=== PATIENT | male | born 1955 | race Caucasian/White ===

== ENCOUNTER 2019-01-11 11:59 | Outpatient (REF) | payer OTHER, SELFPAY | END 2019-01-11 12:19 | LOC: LBN 11:59 | PROVIDERS: PCP Internal Medicine; Visit Provider Urology | DX: R31.9 Hematuria, unspecified (principal) | CPT/HCPCS: 87077; 87086; 87186 ==

== ENCOUNTER 2019-01-17 09:46 | Inpatient (IN) | payer OTHER, SELFPAY ==
[2019-01-17] VITALS (17 sets, daily range): BP systolic 116–154; BP diastolic 66–92; PULSE 61–70; RESP 10–20; TEMP 35.9–36.6; O2SAT 93–98
--- NOTE | 2019-01-17 09:51 | HPE_ITS ---
Assessment and Plan (1) Urinary retention: Current visit: Yes Status: Acute He has failed maximal medical therapy. He presents for cystoscopy with TURP/Vaporization of prostate. His urine sample from last week grew Enterococcus and he has been on Ampicillin as an outpatient. He understands that his surgical pathology could show prostate cancer and that the TURP is not considered a treatment for prostate cancer. Chief Complaint: Urinary retention This is a 63 year old man who was referred to our practice by [facility] after the patient developed acute urinary retention. Mr Ibrahim has had gradual development of lower urinary tract symptoms including hesitancy and slowing of his urinary stream. He had been treated with alpha blockers (Flomax 0.4 mg daily) over the years, but his symptoms progressed. When he developed urinary retention, a soto catheter was placed and his dose of Flomax was doubled. He was treated with antibiotics for presumed acute prostatitis. He was also started on a 5 alpha reductase inhibitor (Finasteride). He has failed several voiding trials and has been unable to accomplish CIC, so his catheter was replaced. He had a urodynamic study which confirms contractility of his bladder. He has a history of an elevated PSA. He has not been diagnosed with prostate cancer. He did not want to delay his surgical treatment for retention by having a prostate biopsy first. Review of Systems Review of Systems No fevers or chills No dysphasia. Wears glasses No diabetes or thyroid dysfunction No shortness of breath, cough or hemoptysis No chest pain or palpitations No nausea, vomiting, hepatitis, ulcers, jaundice, or constipation. Recent diarrhea likely related to antibiotics No seizures or peripheral neuropathy. Residual weakness right arm and right leg s/p stroke. No bleeding disorders or anemia No gout PFSH Medical History Urinary retention (Acute) Carotid artery stenosis (Chronic) GERD (gastroesophageal reflux disease) (Chronic) Hyperlipidemia (Chronic) Hypertension (Chronic) Stroke (Chronic) Surgical History H/O carotid endarterectomy (Chronic) Hx of tonsillectomy (Chronic) Social History Smoking and Tabacco status: Former Tobacco Use Meds Home Medications Medication Instructions Recorded Confirmed Type aspirin 81 mg tablet,delayed 81 mg PO DAILY 12/14/18 01/17/19 History release atorvastatin 80 mg tablet 80 mg PO HS 12/14/18 01/17/19 History ciprofloxacin 500 mg tablet 500 mg PO BID #20 tab 12/14/18 01/17/19 Rx finasteride 5 mg tablet 5 mg PO HS 12/14/18 01/17/19 History hydrochlorothiazide 12.5 mg tablet 12.5 mg PO DAILY 12/14/18 01/17/19 History loratadine 10 mg tablet 10 mg PO DAILY PRN 12/14/18 01/17/19 History losartan 50 mg tablet 50 mg PO HS 12/14/18 01/17/19 History meclizine 25 mg tablet 25 mg PO TID PRN 12/14/18 01/17/19 History metoprolol succinate ER 100 mg 100 mg PO DAILY 12/14/18 01/17/19 History tablet,extended release 24 hr omeprazole 20 mg capsule,delayed 20 mg PO DAILY 12/14/18 01/17/19 History release ranitidine 150 mg capsule 150 mg PO DAILY 12/14/18 01/17/19 History sildenafil 100 mg tablet 100 mg PO ONCE 12/14/18 01/17/19 History tamsulosin 0.4 mg capsule 0.8 mg PO DAILY #180 cap 12/23/18 01/17/19 Rx ampicillin 500 mg capsule 500 mg PO QID #20 cap 01/13/19 01/17/19 Rx acetaminophen 1,000 mg PO Q6H PRN 01/14/19 01/17/19 History Allergies Allergy/AdvReac Type Severity Reaction Status Date / Time No Known Allergies Allergy Verified 01/17/19 10:03 Exam Const General: cooperative and no acute distress Neck Neck: supple Chest Chest: normal inspection of the chest Resp Effort & Inspection: normal respiratory effort Auscultation: clear to auscultation bilaterally Cardio Rate: regular rate Rhythm: regular rhythm GI Palpation: soft and no masses Other: soto in place draining clear urine Neuro General: alert, awake and oriented x3 Extrem General: no edema
[2019-01-17] MEDS: Lactated Ringers 1,000 ML 80 ML IV ×2 (10:40→13:44)
[2019-01-17] MEDS: Lidocaine 2% Jelly 11 ML SYR (11:23)
--- NOTE | 2019-01-17 12:40 | PROST_PTH ---
PATIENT: Hayden Ibrahim LOC: U#:[id number] AGE/SX: 63/M ROOM: 216 RE01/17/[address]: Bry Melgoza MD : [id number] BED: A DIS: 01/18/2019 SPEC #: [id number] RECD: 01/17/19 17:59 STATUS: SOUJorge REQ #: [id number] AMARIS: 01/17/19 12:[address]: Bry Melgoza DEPT: Surgical Specimen RECD BY: Maria G Miramontes ENTERED: 01/17/19 17:59 SP TYPE: PROST OTHR DR: Shane Theodore Tissues: 1 - PROSTATE CURRETTINGS Procedures: GROSS AND MICRO LEVEL 4 Comments: [id number]
[2019-01-17] MEDS: fentaNYL 100 MCG/2 ML VIAL IVP ×2 (13:30→14:08)
--- NOTE | 2019-01-17 14:19 | ROE_ITS ---
DATE OF PROCEDURE: January 17, 2019 PREOPERATIVE DIAGNOSIS: Urinary retention. POSTOPERATIVE DIAGNOSIS: Same. PROCEDURE: Cystoscopy; transurethral resection of prostate. SURGEON: Bry Melgoza M.D. ANESTHESIA: General. COMPLICATIONS: None. ESTIMATED BLOOD LOSS: 200 cc's. HISTORY: This is a 63-year-old gentleman who has had progressive lower urinary tract symptoms over years. He developed urinary retention requiring a Barnes catheter. His medical treatment was maximized with alpha blockers and 5-alpha reductase inhibitors, but he was still unable to void. He presents now for a transurethral resection of his prostate. He did have a pre-procedure urodynamics that showed an adequate detrusor contraction. OPERATIVE REPORT: The patient was brought to the Operating Room on 01/17/19. After successful induction of general anesthesia, he was placed in the dorsal lithotomy position. His genitalia was prepped and draped after his indwelling catheter was removed. A 24 Vietnamese resectoscope sheath was passed through the urethra into the bladder. We used a visual obturator to inspect both the urethra and the bladder. The pendulous, bulbous and membranous urethras appeared normal with no strictures. There was some increased erythema, as would be expected from his indwelling catheter. His prostatic urethra showed trilobar enlargement with a rather large median lobe jutting back into the bladder. Both ureteral orifices were identified. No tumors or stones were seen within the bladder. The visual obturator was removed and we used a bipolar resectoscope to perform transurethral resection of the prostate from the bladder neck out to the verumontanum. We initially took down the median lobe and then resected the remainder of the prostate. The depth of the resection was down to the prostatic capsule. Toward the end of the resection, we switched over the a plasma button and vaporized the prostatic tissue to achieve hemostasis. All resected chips were evacuated and sent to pathology for permanent section. Once the resection was completed, the bladder was filled with irrigant. I then passed a guidewire through the lumen of the resectoscope and removed the resectoscope sheath. I then passed a 22 Vietnamese hematuria catheter over the guidewire. Once the catheter was in position, the catheter balloon was inflated with 30 cc's of sterile water and the catheter was hooked to gravity drainage. Continuous bladder irrigation with saline was then begun. The patient tolerated this procedure well. There were no complications. cc: Shane Theodore D.O.
--- NOTE | 2019-01-17 14:39 | NUR.NOTE ---
Patient arrived via stretcher from PACU. VSS arrived shortly after
[2019-01-17] MEDS: Normal Saline Flush 10 ML SYR IV ×2 (16:03→18:01)
[2019-01-17] MEDS: Ketorolac 15 MG/ML VIAL IVP (18:01)
[2019-01-17] MEDS: Atorvastatin 40 MG TAB 80 MG PO (22:47)
[2019-01-17] MEDS: Finasteride 5 MG TAB PO (22:47)
[2019-01-17] MEDS: Losartan 50 MG TAB PO (22:47)
[2019-01-18 00:48] VITALS: BP 128/72; PULSE 74; RESP 18; TEMP 36.7; O2SAT 95
[2019-01-18] MEDS: Lactated Ringers 1,000 ML 80 ML IV (05:15)
[2019-01-18] MEDS: Acetaminophen 325 MG TAB 650 MG PO (05:16)
--- NOTE | 2019-01-18 07:10 | PGE_ITS ---
Date of Service Date of service: 01/18/19 Time of Service: 07:07 Assessment and Plan (1) Urinary retention: Current visit: Yes Status: Acute I have stopped his bladder irrigation this morning. I will recheck him later this morning to review his lab work and to see if we want to give a voiding trial this morning or if we should send him home with a catheter and give a voiding trial later this week. Subjective Interval history since last seen: He has been having spasms overnight. He has not gone into clot retention Exam Narrative Exam Narrative: He looks fairly comfortable at this point in time. His bladder irrigation is clear at a slow rate. His abdomen is soft with no peritoneal signs He is awake, alert and oriented His morning lab work is not yet available. Objective Objective Clinical Data: Vital Signs Temperature 36.7 C 01/18/19 00:48 Temperature Source Tympanic 01/18/19 00:48 Pulse 74 01/18/19 00:48 Pulse Rhythm Regular 01/18/19 00:50 Respiratory Rate 18 01/18/19 00:48 Respiratory Effort 01/18/19 00:50 Respiratory Depth Normal 01/18/19 00:50 Respiratory Pattern Normal 01/18/19 00:50 Blood Pressure 128/72 01/18/19 00:48 Pulse Oximetry 95 01/18/19 00:48 Respiratory End-tidal CO2 47 01/17/19 13:50 Oxygen Delivery Method Nasal Cannula 01/18/19 00:48 Oxygen Flow Rate 2 01/18/19 00:48 Pain Level 4 01/18/19 05:16 Intake & Output 01/17/19 01/17/19 01/18/19 11:59 23:59 11:59 Intake Total 1664 / 1664 1000 / 1000 Balance 1664 / 1664 1000 / 1000 Weight 97.2 kg Intake: IV 1184 / 1184 1000 / 1000 Oral 480 / 480 Other: Urine Color Pale [place] Urine Appearance Clear Clear Hematuria Hematuria Comment occassional tiny clots throughout the evening. Slow rate for the irrrigation DK DAWSON TO LT [place] IN [place] BAG. INCREASED IRRIGANT FLOW SLIGHTLY AND SHORTLY MORE URINE OUTPUT, CONTINUOUS IMPROVEMENT INTERN AND NO MORE SPASMS. Emesis Description None
[2019-01-18 07:22] LABS: HCT 42.4 % (40.0-50.0); HGB 13.9 g/dL (13.5-17.5)
[2019-01-18 07:35] VITALS: BP 123/71; PULSE 66; RESP 18; TEMP 36.5; O2SAT 94
[2019-01-18 07:44] LABS: Anion Gap 6.5 mmol/L (3-11); BUN 18 mg/dL (7-18); CO2 29.5 mmol/L (21.0-32.0); CREATININE 0.71 mg/dL (0.70-1.30); Calcium 8.1 mg/dL (8.5-10.1); Chloride 107 mmol/L (98-107); Glucose 109 mg/dL (70-100); Sodium 143 mmol/L (136-145)
[2019-01-18] MEDS: Metoprolol CR 100 MG TABCR PO (07:57)
[2019-01-18] MEDS: Tamsulosin 0.4 MG CAPCR 0.8 MG PO (07:57)
--- NOTE | 2019-01-18 08:35 | DSE_ITS ---
Date of service: 01/18/19 Time of Service: 08:29 DS: Diagnosis Discharge Diagnosis (1) Urinary retention: Status: Acute Discharge Plan Disposition Patient Disposition: HOME Condition: Stable Discharge Details Reason For Visit: URINARY RETENTION Admit Date/Time: 01/17/19 09:46 Admit Provider: Bry Melgoza Attending Provider: Bry Melgoza Primary Care Provider: Shane Theodore Hospital Course Hospital Course: The patient was taken to the operating room on 01/17/2019. He underwent a transurethral resection of the prostate. His surgical pathology is not yet available. He was admitted for continuous bladder irrigation overnight. On postoperative day #1, we were able to successfully stop the bladder irrigation. His renal function remained stable. He showed no signs of anemia on his blood work. Once the bladder irrigation was discontinued, his urine remained pink tinged but transparent. It was then decided to allow him to go home with his catheter in place. While the catheter has been in place, he has had significant bladder spasms. I would expect these to discontinue once the catheter can be removed. He will be discharged with oral anticholinergics for this issue Home Meds and New Rx's Prescriptions: New tramadol 50 mg tablet 50 mg PO Q6H PRN (Reason: pain) Qty: 20 RF: 0 oxybutynin chloride 5 mg tablet 5 mg PO TID PRN (Reason: spasms) Qty: 12 RF: 0 Continued atorvastatin 80 mg tablet 80 mg PO HS RF: 0 aspirin 81 mg tablet,delayed release (DR/EC) 81 mg PO DAILY RF: 0 loratadine [Allergy Relief (loratadine)] 10 mg tablet 10 mg PO DAILY PRNRF: 0 hydrochlorothiazide 12.5 mg tablet 12.5 mg PO DAILY RF: 0 losartan 50 mg tablet 50 mg PO HS RF: 0 metoprolol succinate 100 mg tablet extended release 24 hr 100 mg PO DAILY RF: 0 sildenafil [Viagra] 100 mg tablet 100 mg PO ONCE RF: 0 meclizine 25 mg tablet 25 mg PO TID PRNRF: 0 ranitidine HCl 150 mg capsule 150 mg PO DAILY RF: 0 finasteride [Proscar] 5 mg tablet 5 mg PO HS RF: 0 tamsulosin 0.4 mg capsule 0.8 mg PO DAILY Qty: 180 RF: 4 ampicillin 500 mg capsule 500 mg PO QID Qty: 20 RF: 0 acetaminophen 500 mg Tablet 1,000 mg PO Q6H PRNRF: 0 Discontinued omeprazole 20 mg capsule,delayed release(DR/EC) 20 mg PO DAILY RF: 0 ciprofloxacin HCl 500 mg tablet 500 mg PO BID Qty: 20 RF: 0 Discharge Instructions Additional Instructions: Soto to leg bag F/U or Thursday for catheter removal F/U appt with me @ 2weeks to discuss path results No lifting over 10 pounds or straining until F/U appt with me No driving while on pain meds No ejaculation for 4 weeks Activity:: see additional instructions Equipment/Supplies:: soto to leg bag Diet:: As Tolerated Discharge Orders Discharge Orders: Discharge Order (Routine); Ordered 01/18/19 Ordered By: Bry Melgoza Exam Narrative Exam Narrative: At the time of discharge, the patient looks well. His vital signs are documented elsewhere in the chart His lungs are clear with no rales Cardiac exam regular with no murmurs His abdomen is soft with no mass His urine is pink tinged but transparent with no irrigation He is awake, alert and oriented. DS: Data Vitals/I&O Vitals and I&O: Vital Signs Temperature 36.7 C 01/18/19 00:48 Temperature Source Tympanic 01/18/19 00:48 Pulse 74 01/18/19 00:48 Pulse Rhythm Regular 01/18/19 00:50 Respiratory Rate 18 01/18/19 00:48 Respiratory Effort 01/18/19 00:50 Respiratory Depth Normal 01/18/19 00:50 Respiratory Pattern Normal 01/18/19 00:50 Blood Pressure 128/72 01/18/19 00:48 Pulse Oximetry 95 01/18/19 00:48 Respiratory End-tidal CO2 47 01/17/19 13:50 Oxygen Delivery Method Nasal Cannula 01/18/19 00:48 Oxygen Flow Rate 2 01/18/19 00:48 Pain Level 4 01/18/19 05:16 Intake & Output 01/17/19 01/17/19 01/18/19 11:59 23:59 11:59 Intake Total 1664 / 1664 1300 / 1300 Balance 1664 / 1664 1300 / 1300 Weight 97.2 kg Intake: IV 1184 / 1184 1000 / 1000 Oral 480 / 480 300 / 300 Other: Urine Color Pale [place] Urine Appearance Clear Clear Hematuria Comment occassional tiny clots throughout the evening. Slow rate for the irrrigation PT ON [address] BLADDER IRRIGATION. MULTI BAGS IRRIGANT. PALE PINK RETURN Emesis Description None Labs on day of discharge: Labs from last 24 hours 01/18/19 01/18/19 06:22 06:22 Hgb 13.9 Hct 42.4 Sodium 143 Potassium 4.0 Chloride 107 Carbon Dioxide 29.5 Anion Gap 6.5 BUN 18 Creatinine 0.71 Estimated GFR/1.73 m2 >= 60.00 Glucose 109 H Calcium 8.1 L PFSH Medical History Urinary retention (Acute) Carotid artery stenosis (Chronic) GERD (gastroesophageal reflux disease) (Chronic) Hyperlipidemia (Chronic) Hypertension (Chronic) Stroke (Chronic) Surgical History H/O carotid endarterectomy (Chronic) Hx of tonsillectomy (Chronic) Social History Smoking and Tabacco status: Former Tobacco Use
--- NOTE | 2019-01-18 10:50 | PGE_ITS ---
Date of Service Date of service: 01/18/19 Time of Service: 10:47 Assessment and Plan (1) Urinary retention: Current visit: Yes Status: Acute We will still discharge him with the catheter. He will follow-up with us on Thursday to have the catheter removed. Subjective Interval history since last seen: Prior to discharge, the patient began leaking around his catheter. The catheter could not be successfully irrigated. Exam Narrative Exam Narrative: I removed his indwelling irrigating catheter, and replaced it with a 6 and 18 Filipino coud?-tipped catheter. We drained over 200 cc of pink tinged urine. I inflated the balloon with 10 cc of sterile water. I was able to successfully irrigate the catheter Objective Objective Clinical Data: Abnormal lab results 01/18/19 Range/Units 06:22 Glucose 109 H (70-100) mg/dL Calcium 8.1 L (8.5-10.1) mg/dL Vital Signs Temperature 36.5 C 01/18/19 07:35 Temperature Source Tympanic 01/18/19 07:35 Pulse 66 01/18/19 07:35 Pulse Rhythm Regular 01/18/19 07:50 Respiratory Rate 18 01/18/19 07:35 Respiratory Effort 01/18/19 07:50 Respiratory Depth Normal 01/18/19 07:50 Respiratory Pattern Normal 01/18/19 07:50 Blood Pressure 123/71 01/18/19 07:35 Pulse Oximetry 94 L 01/18/19 07:35 Respiratory End-tidal CO2 47 01/17/19 13:50 Oxygen Delivery Method Nasal Cannula 01/18/19 07:35 Oxygen Flow Rate 0 01/18/19 07:35 Fraction of Inspired Oxygen (FIO2) 2 01/18/19 07:35 Pain Level 4 01/18/19 05:16 Comment 01/18/19 07:35 Intake & Output 01/17/19 01/17/19 01/18/19 11:59 23:59 11:59 Intake Total 1664 / 1664 1790 / 1790 Balance 1664 / 1664 1790 / 1790 Weight 97.2 kg Intake: IV 1184 / 1184 1000 / 1000 Oral 480 / 480 790 / 790 Other: Urine Color Pale [place] Urine Appearance Clear Hematuria Hematuria Comment occassional tiny clots throughout the evening. Slow rate for the irrrigation irrigation stopped by Dr. Melgoza this morning Stool Size Moderate Stool Characteristics Liquid Brown Emesis Description None Laboratory Results Hgb 13.9 g/dL (13.5-17.5) 01/18/19 06:22 Hct 42.4 % (40.0-50.0) 01/18/19 06:22 Sodium 143 mmol/L (136-145) 01/18/19 06:22 Potassium 4.0 mmol/L (3.5-5.1) 01/18/19 06:22 Chloride 107 mmol/L (98-107) 01/18/19 06:22 Carbon Dioxide 29.5 mmol/L (21.0-32.0) 01/18/19 06:22 Anion Gap 6.5 mmol/L (3-11) 01/18/19 06:22 BUN 18 mg/dL (7-18) 01/18/19 06:22 Creatinine 0.71 mg/dL (0.70-1.30) 01/18/19 06:22 Estimated GFR/1.73 m2 >= 60.00 (mL/min/1.73m2) 01/18/19 06:22 Glucose 109 mg/dL (70-100) H 01/18/19 06:22 Calcium 8.1 mg/dL (8.5-10.1) L 01/18/19 06:22
--- NOTE | 2019-01-18 11:57 | NUR.NOTE ---
at 1030 patient went upstairs to Dr. Melgoza office for catheter change. Hand irrigation was not effective in removing clot. Patient returned at 11:15
== END 2019-01-18 11:21 | disposition home or self-care (01) | DRG 714 ==
LOC: PDS 09:54 → MS 14:03
PROVIDERS: Admitting Provider Urology; PCP Internal Medicine; Visit Provider Urology
PROC: 0VT08ZZ Resection of Prostate, Via Natural or Artificial Opening Endoscopic (ICD-10-PCS; CPT 52601; principal; 2019-01-17 09:30)
DX: N40.0 Benign prostatic hyperplasia without lower urinary tract symptoms (principal); R33.8 Other retention of urine; I10 Essential (primary) hypertension; K21.9 Gastro-esophageal reflux disease without esophagitis; E78.5 Hyperlipidemia, unspecified; Z86.73 Personal history of transient ischemic attack (TIA), and cerebral infarction without residual deficits
CPT/HCPCS: 52601; 36415; 80048; 88305; NC; 85014; 85018; J0690; J1100; J1885; J2250; J2405; J3010

== ENCOUNTER 2022-04-07 11:36 | Day surgery (SDC) | payer MEDICARE, SELFPAY ==
[2022-04-07 11:53] VITALS: BP 145/86; PULSE 63; RESP 16; TEMP 36.6; O2SAT 97
[2022-04-07] MEDS: Tropicam./Phenyleph. (1/2.5%) 5 ML BTL OS ×3 (12:19→12:30)
[2022-04-07 13:52] VITALS: BMI 37.3
--- NOTE | 2022-04-07 13:52 | W.ANESPRE ---
General Info Date of Service Date Performed: 04/07/22 Height: 5 ft 4 in Weight: 98.5 kg Body Mass Index (BMI): 37.3 Surgical Procedure: Operation Date: 04/07/22 13:55 Proposed Procedure Side Surgeon p Cataract Extraction with IOL Implant Left Parminder Pollack MD Meds Allergies and Home Medications Allergies Allergy/AdvReac Type Severity Reaction Status Date / Time No Known Allergies Allergy Verified 04/07/22 11:59 Home Medication Medication Instructions Recorded atorvastatin 80 mg tablet 80 mg PO HS 12/14/18 hydrochlorothiazide 12.5 mg tablet 12.5 mg PO DAILY 12/14/18 loratadine 10 mg tablet (Allergy 10 mg PO DAILY PRN 12/14/18 Relief (loratadine)) losartan 50 mg tablet 100 mg PO HS 12/14/18 meclizine 25 mg tablet 25 mg PO TID PRN 12/14/18 metoprolol succinate 100 mg 100 mg PO DAILY 12/14/18 tablet,extended release 24 hr ranitidine HCl 150 mg capsule 150 mg PO DAILY 12/14/18 sildenafil 100 mg tablet (Viagra) 100 mg PO ONCE 12/14/18 acetaminophen 500 mg tablet 1,000 mg PO Q6H PRN 01/14/19 tramadol 50 mg tablet 50 mg PO Q6H PRN pain #20 tabs 01/18/19 aspirin 325 mg tablet 325 mg PO DAILY 04/03/22 glimepiride 1 mg tablet 0.5 tab PO DAILY 04/03/22 Current Visit Medications: Current Medications Generic Name Dose Route Start Last Admin Trade Name Freq PRN Reason Stop Dose Admin Acetaminophen 1,000 mg 04/07/22 06:00 Acetaminophen 500 Mg Tab PO Q4H PRN PRN Miscellaneous Medication 0 ml 04/07/22 06:00 Prednisolone 1%, Moxifloxacin 0.5%, Nepafenac 0.1% 5ml Btl OS DIRECTED ALVARO Miscellaneous Medication 0 ml 04/07/22 06:00 04/07/22 12:30 Tropicam./Phenyleph. (1/2.5%) 5 Ml Btl OS 1 drp DIRECTED ALVARO Administration Tetracaine HCl 0 ml 04/07/22 06:00 Tetracaine 0.5% 4 Ml Btl OS DIRECTED ALVARO PFSH Active Problems Active Problems: Problem Status Onset Code Cortical cataract of left eye H26.9 Nuclear sclerotic cataract of left eye H25.12 Urinary retention R33.9 Medical History Medical History Carotid artery stenosis Dysphagia Dyspnea GERD (gastroesophageal reflux disease) History of cerebrovascular accident 2014- with Dr. Theodore Hyperlipidemia Hypertension Increased frequency of urination Left carotid artery occlusion Left carotid stenosis Per H&P, was corrected 10 years ag. US carotids in 06/2019 showed stable disease with no restenosis on left Does have some plaque on right, but has remained on his atorvastatin. Stroke Type II diabetes mellitus Urinary retention Surgical History Surgical History H/O carotid endarterectomy Hx of colonoscopy Hx of tonsillectomy Hx of transurethral prostatectomy Tobacco Smoking/Tobacco Use Status: Former Tobacco Use Alcohol Alcohol Intake: current Alcohol intake frequency: a few times a week Alcohol type: beer and hard liquor Substance Use Substance use: Never Substance use type: does not use Vital Signs and Lab Results Vital Signs Most Recent Vital Signs in EMR: Most Recent Vital Signs Temp Pulse Resp BP Pulse Ox 36.6 C 63 16 145/86 H 97 04/07/22 11:53 04/07/22 11:53 04/07/22 11:53 04/07/22 11:53 04/07/22 11:53 Point of Care Results Point of Care Results: Finger Stick Blood Glucose 112 04/07/22 12:27 Lab Results Blood Type / Crossmatch: No Data to Display Complete Blood Count: No Data to Display Complete Metabolic Panel: No Data to Display Liver Function Panel: No Data to Display Coagulation Panel: No Data to Display Cardiac Panel: No Data to Display Arterial Blood Gas: No Data to Display Venous Blood Gas: No Data to Display Pancreas Panel: No Data to Display Thyroid Panel: No Data to Display Infectious Disease: No Data to Display Blood Cultures: No Data to Display Toxicology Panel: No Data to Display Anesthesia Assessment and Plan Anesthesia History Personal History: No History of Anesthesia Complications Family History: No Family History of Anesthesia Complications Exercise Tolerance Exercise Tolerance: Metabolic Equivalents>4 Pertinent Negatives Pertinent Negatives: No Symptoms of GERD Cardiac & Pulmonary Exam Cardiac Exam: Normal S1/S2 Heart Sounds Pulmonary Exam: Clear Bilateral Breath Sounds Implantable Cardiac Device Does patient have a Pacemaker or an ICD?: No Airway Exam Known Difficult Airway: No Mallampati Class: 3 Mouth Opening: Normal (> 3cm) Thyromental Distance: Greater than 3 cm Neck Range of Motion: Full ROM Neck Circumference: Normal Teeth Condition: Generalized Poor Dentition and Loose or Chipped (Chipped teeth present. Patient denies loose teeth. ) ASA Classification ASA Score: ASA 3 Emergency Case?: No NPO Status NPO Status: NPO Clears >2 hours, Solids >8 hours Anesthesia Plan Resuscitation Status: Full Code Anesthesia Technique: MAC Anesthesia Airway Planned: Natural Airway Monitors Used: Standard Monitors
[2022-04-07] MEDS: Balanced Salt Soln.-PLUS 500 ML BAG (14:15)
[2022-04-07] MEDS: Tetracaine 0.5% 4 ML BTL OS (14:15)
[2022-04-07] MEDS: Duovisc Viscoelastic System EACH 1 EACH (14:16)
[2022-04-07] MEDS: Lidocaine 2% Jelly 6 ML SYR (14:17)
[2022-04-07] MEDS: Povidone-Iodine Ophth 30 ML BTL (14:18)
[2022-04-07] MEDS: Triamcinolone 40 MG/ML VIAL (14:19)
[2022-04-07 14:38] VITALS: BP 152/92; PULSE 64; RESP 16; TEMP 36.2; O2SAT 95
--- NOTE | 2022-04-07 14:38 | W.PM.DSUDISC ---
Discharge Plan Disposition Patient Disposition: HOME Condition: Good Discharge Details Attending Provider: Parminder Pollack Primary Care Provider: Shane Theodore Home Meds and New Rx's Prescriptions: No Action atorvastatin 80 mg tablet 80 mg PO HS loratadine [Allergy Relief (loratadine)] 10 mg tablet 10 mg PO DAILY PRN hydrochlorothiazide 12.5 mg tablet 12.5 mg PO DAILY losartan 50 mg tablet 100 mg PO HS metoprolol succinate 100 mg tablet extended release 24 hr 100 mg PO DAILY sildenafil [Viagra] 100 mg tablet 100 mg PO ONCE meclizine 25 mg tablet 25 mg PO TID PRN ranitidine HCl 150 mg capsule 150 mg PO DAILY acetaminophen 500 mg Tablet 1,000 mg PO Q6H PRN tramadol 50 mg tablet 50 mg PO Q6H PRN (Reason: pain) Qty: 20 0RF Rx Instructions: may take along with tylenol and NSAIDS aspirin 325 mg Tablet 325 mg PO DAILY glimepiride 1 mg tablet 0.5 tab PO DAILY Label Comments: TAKE 1 TABLET BY MOUTH ONCE DAILY, ALONG WITH METFORMIN Discharge Instructions Stand Alone Forms: Post-op Topical Cataract, Brando Floyd (DSU) Discharge Orders Discharge Orders: Discharge Order (Routine); Ordered 04/07/22 Ordered By: Parminder Pollack DS: Diagnosis Discharge Diagnosis (1) Cortical cataract of left eye: Status: Resolved (2) Nuclear sclerotic cataract of left eye: Status: Resolved
--- NOTE | 2022-04-07 14:39 | ROE_ITS ---
Date of service: 04/07/22 Time of Service: 13:39 Operative Note Operative Note PRE-OP DIAGNOSIS: Nuclear/cortical cataract, left eye POST-OP DIAGNOSIS: same PROCEDURE: Cataract extraction using phacoemulsification with intraocular lens implant, left eye SURGEON: Parminder Pollack ANESTHESIA TYPE: Local By Surgeon and MAC Refer to Anesthesia Record PATHOLOGY: none sent COMPLICATIONS: None Patient was transported to: same day Patient's condition: stable Implants: José and José / [employer] Tecnis [id number] Indications: Progressive decreased vision due to cataract, left eye Procedure Description: CATARACT SURGERY OPERATIVE REPORT PREOPERATIVE DIAGNOSIS: 1. Nuclear/cortical cataract, left eye POSTOPERATIVE DIAGNOSIS: Same OPERATION: 1. Cataract extraction using phacoemulsification with posterior chamber intraocular lens implant, left eye. IOL: IOL Remedy Developer/Model: José & José / ALISHA Tecnis [id number] IOL Power: + 10.0 diopters IOL Serial Number: [id number] Optic Diameter: 6.0 mm Haptic/Overall Diameter: 13.0 mm PHACO INFO: Dimas[employer] Systemson Vision System with OZil and Active Fluidics Cumulative Dispersed Energy (CDE): 4.67 seconds SURGEON: Parminder Pollack MD, EDU ANESTHESIA: Monitored A [facility] (MAC), with local sub-tenon's anesthetic infiltration COMPLICATIONS: None SPECIMENS: None INDICATIONS FOR PROCEDURE: Patient is a 67-year-old gentleman with history of high myopia who has developed a significant nuclear/cortical cataract in the left eye. The option of cataract surgery was offered to the patient and he felt he was symptomatic enough that he wished to proceed. PROCEDURE: The correct surgical eye was identified and marked as the left eye and the pupil was dilated in the preoperative area using mydriatics and cycloplegics. The dilated pupil size was 7.0 mm. He elected to proceed without oral sedation. The patient was brought to the operating room where cardiopulmonary monitoring was instituted and surgical time-out was performed, confirming the correct operative eye and IOL power. Topical anesthesia was administered and ophthalmic povidone-iodine 5% was instilled into the conjunctival fornices. Lidocaine gel was applied to the cornea and the homa-ocular area was prepped with Betadine 10% solution and draped in the usual sterile fashion for intraocular surgery, including an aperture drape. A Tegaderm transparent film dressing was cut in half and used to cover the lashes and lid margins. Care was taken to sequester the lashes and lid margins under the Tegaderm dressing. A lid speculum was placed between the lids of the operative eye and the Dimas LuxOR Revalia operating microscope was maneuvered into position. Xu scissors were then used to make a conjunctival buttonhole approximately 6mm posterior to the limbus in the inferonasal quadrant. Blunt dissection was carried out to expose bare sclera, and a blunt-tipped sub-tenon?s anesthesia cannula was introduced and passed posteriorly along the globe where non- preserved plain lidocaine was injected into posterior sub-Tenon?s space. A sideport knife was used to make a paracentesis port superiorly/superiortemporally. Intraocular phenylephrine/lidocaine was injected int the anterior chamber.. The anterior chamber was filled with viscoelastic. A 2.4mm keratome knife was used to construct a 2-plane near-clear corneal tunnel extending 2.0mm into clear cornea temporally. A flap was raised on the anterior capsule and capsulorhexis forceps were used to complete a continuous curvilinear capsulorhexis of 5.0 mm. Capsulorhexis was challenging due to constant patient eye movement. The eye had to be fixated with a second instrument during capsulorrhexis creation. The anterior chamber was noted to be very deep. Balanced salt solution was then used to perform cortical cleaving hydrodissection and nuclear hydrodelineation until the lens could be freely rotated within the capsular bag. The lens nucleus was then disassembled and removed within the capsular bag and iris plane using phacoemulsification. Residual cortical material was removed using the 45-degree angled silicone I/A tip with 0.3mm port. The posterior capsule was carefully polished to remove as much residual lens epithelial cells as safely possible. The capsular bag was then inflated and the anterior chamber deepened with viscoelastic. The lens implant described above was inserted into the capsular bag using the ALISHA [place] Injector. A Kuglen hook was used to dial the IOL into position. Residual viscoelastic was then removed first from posterior to the IOL, then from the anterior chamber using the I/A handpiece. The lens implant was noted to center nicely within the capsular bag. The incisions were stromally hydrated, and the anterior chamber was reformed using BSS. Then 0.5cc of moxifloxacin 1.0mg/ml were injected into the capsular bag and anterior chamber. At the conclusion of the procedure, Kenalog 20 mg in 0.5 cc were injected into posterior sub-tenon's space using the sub-tenon's anesthesia injection cannula. Incisions were checked with a Weck spear and found to be secure. Several drops of ophthalmic povidone-iodine 5% were then applied to the eye followed by two drops of Imprimis combination prednisolone/moxifloxacin/nepafenac solution. The drapes were removed and a clear plastic protective eye shield was placed over the eye. The patient was then returned to Same Day Surgery in stable condition.
--- NOTE | 2022-04-07 15:15 | W.ANESPOSTOP ---
Postoperative Evaluation Date, Time and Location Date Performed: 04/07/22 Time Performed: 14:48 Patient Location: Day Surgery Unit Vital Signs Most Recent Imported Vital Signs: Most Recent Vital Signs Temp Pulse Resp BP Pulse Ox 36.2 C L 64 16 152/92 H 95 04/07/22 14:38 04/07/22 14:38 04/07/22 14:38 04/07/22 14:38 04/07/22 14:38 Pain Score Most Recent Pain Score: Most Recent Pain Score Pain Level 0 04/07/22 14:38 Assessment Mental Status: Awake (Alert & Oriented to Patient Baseline) Airway and Respiratory Function: Patent airway with normal (patient baseline) respiratory exam Cardiovascular Function: Hemodynamically Stable Hydration Status: Adequately Hydrated Nausea & Vomiting: No Nausea or Vomiting Pain: Pt. Denies Any Pain Peripheral Nerve Block: Patient did not receive a nerve block
== END 2022-04-07 14:59 | disposition home or self-care (01) ==
PROVIDERS: PCP Internal Medicine; Visit Provider Ophthalmology
PROC: (CPT 66984; principal; 2022-04-07 13:45)
DX: H25.12 Age-related nuclear cataract, left eye (principal); E11.9 Type 2 diabetes mellitus without complications; I10 Essential (primary) hypertension; K21.9 Gastro-esophageal reflux disease without esophagitis
CPT/HCPCS: 66984; V2632

== ENCOUNTER 2022-04-21 10:28 | Day surgery (SDC) | payer MEDICARE, SELFPAY ==
[2022-04-21] MEDS: Tropicam./Phenyleph. (1/2.5%) 5 ML BTL OD ×3 (10:58→11:14)
[2022-04-21 11:09] VITALS: BP 137/80; PULSE 64; RESP 16; TEMP 36.8; O2SAT 95
--- NOTE | 2022-04-21 11:18 | ANES.PREOP_ITS ---
General Info Date of Service Date Performed: 04/21/22 Height: 5 ft 4 in Weight: 98.5 kg Body Mass Index (BMI): 37.3 Surgical Procedure: Operation Date: 04/21/22 13:40 Proposed Procedure Side Surgeon p Cataract Extraction with IOL Implant Right Parminder Pollack MD Meds Allergies and Home Medications Allergies Allergy/AdvReac Type Severity Reaction Status Date / Time No Known Allergies Allergy Verified 04/21/22 11:02 Home Medication Medication Instructions Recorded atorvastatin 80 mg tablet 80 mg PO HS 12/14/18 hydrochlorothiazide 12.5 mg tablet 12.5 mg PO DAILY 12/14/18 loratadine 10 mg tablet (Allergy 10 mg PO DAILY PRN 12/14/18 Relief (loratadine)) losartan 50 mg tablet 100 mg PO HS 12/14/18 meclizine 25 mg tablet 25 mg PO TID PRN 12/14/18 metoprolol succinate 100 mg 100 mg PO DAILY 12/14/18 tablet,extended release 24 hr ranitidine HCl 150 mg capsule 150 mg PO DAILY 12/14/18 acetaminophen 500 mg tablet 1,000 mg PO Q6H PRN 01/14/19 aspirin 325 mg tablet 325 mg PO DAILY 04/03/22 glimepiride 1 mg tablet 0.5 tab PO DAILY 04/03/22 amlodipine 2.5 mg tablet 1 tab PO DAILY 04/21/22 metformin 1,000 mg tablet 1 tab PO BID 04/21/22 Current Visit Medications: Current Medications Generic Name Dose Route Start Last Admin Trade Name Freq PRN Reason Stop Dose Admin Acetaminophen 1,000 mg 04/21/22 06:00 Acetaminophen 500 Mg Tab PO 04/21/22 16:00 Q4H PRN PRN Miscellaneous Medication 0 ml 04/21/22 06:00 Prednisolone 1%, Moxifloxacin 0.5%, Nepafenac 0.1% 5ml Btl OD 04/21/22 16:00 DIRECTED ALVARO Miscellaneous Medication 0 ml 04/21/22 06:00 04/21/22 11:14 Tropicam./Phenyleph. (1/2.5%) 5 Ml Btl OD 04/21/22 16:00 1 drp DIRECTED ALVARO Administration Tetracaine HCl 0 ml 04/21/22 06:00 Tetracaine 0.5% 4 Ml Btl OD 04/21/22 16:00 DIRECTED [facility] Active Problems Active Problems: Problem Status Onset Code Urinary retention R33.9 Nuclear sclerotic cataract of left eye H25.12 Cortical cataract of left eye H26.9 Cortical cataract of right eye H26.9 Nuclear sclerotic cataract of right eye H25.11 Medical History Medical History Carotid artery stenosis Dysphagia Dyspnea GERD (gastroesophageal reflux disease) History of cerebrovascular accident 2014-/ with Dr. Theodore Hyperlipidemia Hypertension Increased frequency of urination Left carotid artery occlusion Left carotid stenosis Per H&P, was corrected 10 years ag. US carotids in 06/2019 showed stable disease with no restenosis on left Does have some plaque on right, but has remained on his atorvastatin. Stroke Type II diabetes mellitus Urinary retention Surgical History Surgical History (Updated 04/21/22 @ 11:02 by Lacey Mccall) H/O carotid endarterectomy History of cataract surgery Hx of cataract removal with insertion of prosthetic lens Hx of colonoscopy Hx of tonsillectomy Hx of transurethral prostatectomy Tobacco Smoking/Tobacco Use Status: Former Tobacco Use Alcohol Alcohol Intake: current Alcohol intake frequency: a few times a week Alcohol type: beer and hard liquor Substance Use Substance use: Never Substance use type: does not use Vital Signs and Lab Results Vital Signs Most Recent Vital Signs in EMR: Most Recent Vital Signs Temp Pulse Resp BP Pulse Ox 36.8 C 64 16 137/80 95 04/21/22 11:09 04/21/22 11:09 04/21/22 11:09 04/21/22 11:09 04/21/22 11:09 Point of Care Results Point of Care Results: Finger Stick Blood Glucose 119 04/21/22 10:49 Lab Results Blood Type / Crossmatch: No Data to Display Complete Blood Count: No Data to Display Complete Metabolic Panel: No Data to Display Liver Function Panel: No Data to Display Coagulation Panel: No Data to Display Cardiac Panel: No Data to Display Arterial Blood Gas: No Data to Display Venous Blood Gas: No Data to Display Pancreas Panel: No Data to Display Thyroid Panel: No Data to Display Infectious Disease: No Data to Display Blood Cultures: 2 No Data to Display Toxicology Panel: No Data to Display Anesthesia Assessment and Plan Anesthesia History Personal History: No History of Anesthesia Complications Family History: No Family History of Anesthesia Complications Exercise Tolerance Exercise Tolerance: Metabolic Equivalents>4 Pertinent Negatives Pertinent Negatives: No Symptoms of GERD and No Major Pulmonary Symptoms or Complaints Cardiac & Pulmonary Exam Cardiac Exam: Normal S1/S2 Heart Sounds Pulmonary Exam: Clear Bilateral Breath Sounds Implantable Cardiac Device Does patient have a Pacemaker or an ICD?: No Airway Exam Known Difficult Airway: No Mallampati Class: 3 Mouth Opening: Normal (> 3cm) Thyromental Distance: Greater than 3 cm Neck Range of Motion: Full ROM Neck Circumference: Normal Teeth Condition: Generalized Poor Dentition and Loose or Chipped (Chipped teeth present. Patient denies loose teeth. ) ASA Classification ASA Score: ASA 3 Emergency Case?: No NPO Status NPO Status: NPO Clears >2 hours, Solids >8 hours Anesthesia Plan Resuscitation Status: Full Code Anesthesia Technique: MAC Anesthesia Airway Planned: Natural Airway Monitors Used: Standard Monitors
[2022-04-21 11:43] VITALS: BMI 37.3
[2022-04-21] MEDS: Tetracaine 0.5% 4 ML BTL OD (11:49)
[2022-04-21] MEDS: Povidone-Iodine Ophth 30 ML BTL (11:50)
[2022-04-21] MEDS: Duovisc Viscoelastic System EACH 1 EACH (11:55)
[2022-04-21] MEDS: Balanced Salt Soln.-PLUS 500 ML BAG (11:55)
[2022-04-21] MEDS: Lidocaine 2% Jelly 6 ML SYR (11:55)
--- NOTE | 2022-04-21 12:18 | W.PM.DSUDISC ---
Discharge Plan Disposition Patient Disposition: HOME Condition: Good Discharge Details Attending Provider: Parminder Pollack Primary Care Provider: Shane Theodore Home Meds and New Rx's Prescriptions: No Action atorvastatin 80 mg tablet 80 mg PO HS loratadine [Allergy Relief (loratadine)] 10 mg tablet 10 mg PO DAILY PRN hydrochlorothiazide 12.5 mg tablet 12.5 mg PO DAILY losartan 50 mg tablet 100 mg PO HS metoprolol succinate 100 mg tablet extended release 24 hr 100 mg PO DAILY meclizine 25 mg tablet 25 mg PO TID PRN ranitidine HCl 150 mg capsule 150 mg PO DAILY acetaminophen 500 mg Tablet 1,000 mg PO Q6H PRN aspirin 325 mg Tablet 325 mg PO DAILY glimepiride 1 mg tablet 0.5 tab PO DAILY Label Comments: TAKE 1 TABLET BY MOUTH ONCE DAILY, ALONG WITH METFORMIN amlodipine 2.5 mg tablet 1 tab PO DAILY Label Comments: TAKE 1 TABLET BY MOUTH ONCE DAILY metformin 1,000 mg tablet 1 tab PO BID Label Comments: TAKE 1 TABLET BY MOUTH TWICE DAILY Discharge Instructions Stand Alone Forms: Post-op Topical Cataract, Brando Floyd (DSU) Discharge Orders Discharge Orders: Discharge Order (Routine); Ordered 04/21/22 Ordered By: Parminder Pollack DS: Diagnosis Discharge Diagnosis (1) Cortical cataract of right eye: Status: Resolved (2) Nuclear sclerotic cataract of right eye: Status: Resolved
--- NOTE | 2022-04-21 12:19 | ROE_ITS ---
Date of service: 04/21/22 Time of Service: 11:19 Operative Note Operative Note DATE OF PROCEDURE: 04/21/22 PRE-OP DIAGNOSIS: Nuclear/cortical cataract, right eye POST-OP DIAGNOSIS: same PROCEDURE: Cataract extraction using phacoemulsification with intraocular lens implant, right eye SURGEON: Parminder Pollack ANESTHESIA TYPE: Local By Surgeon and MAC Refer to Anesthesia Record ESTIMATED BLOOD LOSS: 0 PATHOLOGY: none sent COMPLICATIONS: None Patient was transported to: same day Patient's condition: stable Implants: José & José/ALISHA Tecnis [id number] Indications: Progressive visual loss due to cataract, right eye Procedure Description: CATARACT SURGERY OPERATIVE REPORT PREOPERATIVE DIAGNOSIS: 1. Nuclear/cortical cataract, right eye POSTOPERATIVE DIAGNOSIS: Same OPERATION: 1. Cataract extraction using phacoemulsification with posterior chamber intraocular lens implant, right eye. IOL: IOL Punch Box Tender/Model: José & José / ALISHA Tecnis [id number] IOL Power: + 10.0 diopters IOL Serial Number: [id number] Optic Diameter: 6.0mm Haptic/Overall Diameter: 13.0mm PHACO INFO: Dimas [employer] Vision System with OZil and Active Fluidics Cumulative Dispersed Energy (CDE): 7.48 seconds SURGEON: Parminder Pollack MD, EDU ANESTHESIA: Monitored Anesthesia Care (MAC), with local sub-tenon's anesthetic infiltration COMPLICATIONS: None SPECIMENS: None INDICATIONS FOR PROCEDURE: The patient is a 67-year-old gentleman with history of myopia who has developed significant bilateral nuclear and cortical cataract. He is significantly symptomatic that he desired cataract surgery and attempt to improve and maximize his vision. He has already undergone cataract surgery in the left eye and is doing well postoperatively. He now presents for cataract surgery in the right eye. PROCEDURE: The correct surgical eye was identified and marked as the right eye and the pupil was dilated in the preoperative area using mydriatics and cycloplegics. The dilated pupil size was 7.0 mm. Oral sedation was administered in the form of an Imprimis MKO Melt (midazolam 3mg/ketamine 25mg/ondansetron 2mg). The patient was brought to the operating room where cardiopulmonary monitoring was instituted and surgical time-out was performed, confirming the correct operative eye and IOL power. Topical anesthesia was administered and ophthalmic povidone-iodine 5% was instilled into the conjunctival fornices. Lidocaine gel was applied to the cornea and the homa-ocular area was prepped with Betadine 10% solution and draped in the usual sterile fashion for intraocular surgery, including an aperture drape. A Tegaderm transparent film dressing was cut in half and used to cover the lashes and lid margins. Care was taken to sequester the lashes and lid margins under the Tegaderm dressing. A lid speculum was placed between the lids of the operative eye and the Dimas LuxOR Revalia operating microscope was maneuvered into position. Xu scissors were then used to make a conjunctival buttonhole approximately 6mm posterior to the limbus in the inferonasal quadrant. Blunt dissection was carried out to expose bare sclera, and a blunt-tipped sub-tenon?s anesthesia cannula was introduced and passed posteriorly along the globe where non- preserved plain lidocaine was injected into posterior sub-Tenon?s space. A sideport knife was used to make a paracentesis port inferotemporally. Intraocular phenylephrine/lidocaine was injected into the anterior chamber. The anterior chamber was filled with viscoelastic. A 2.4mm keratome knife was used to construct a 2-plane near-clear corneal tunnel extending 2.0mm into clear cornea superiortemporally. A flap was raised on the anterior capsule and capsulorhexis forceps were used to complete a continuous curvilinear capsulorhexis of 5.5 mm. Balanced salt solution was then used to perform cortical cleaving hydrodissection and nuclear hydrodelineation until the lens could be freely rotated within the capsular bag. The lens nucleus was then disassembled and removed within the capsular bag and iris plane using phacoemulsification. Residual cortical material was removed using the I/A handpiece. The posterior capsule was carefully polished to remove as much residual lens epithelial cells as safely possible. The capsular bag was then inflated and the anterior chamber deepened with viscoelastic. The lens implant described above was inserted into the capsular bag using the ALISHA [place] Injector. A Kuglen hook was used to dial the IOL into position. Residual viscoelastic was then removed first from posterior to the IOL, then from the anterior chamber using the I/A handpiece. The lens implant was noted to center nicely within the capsular bag. The incisions were stromally hydrated, and the anterior chamber was reformed using BSS. Then 0.5cc of moxifloxacin 1. 0mg/ml were injected into the capsular bag and anterior chamber. The incisions were checked with a Weck spear and found to be secure. Several drops of ophthalmic povidone-iodine 5% were then applied to the eye followed by two drops of Imprimis combination prednisolone/moxifloxacin/nepafenac solution. The drapes were removed and a clear plastic protective eye shield was placed over the eye. The patient was then returned to Same Day Surgery in stable condition.
[2022-04-21 12:20] VITALS: BP 97/60; PULSE 60; RESP 16; TEMP 36.7; O2SAT 92
--- NOTE | 2022-04-21 12:37 | W.ANESPOSTOP ---
Postoperative Evaluation Date, Time and Location Date Performed: 04/21/22 Time Performed: 12:37 Patient Location: Day Surgery Unit Vital Signs Most Recent Imported Vital Signs: Most Recent Vital Signs Temp Pulse Resp BP Pulse Ox 36.7 C 60 16 97/60 L 92 04/21/22 12:20 04/21/22 12:20 04/21/22 12:20 04/21/22 12:20 04/21/22 12:20 Pain Score Most Recent Pain Score: Most Recent Pain Score Pain Level 0 04/21/22 12:20 Assessment Mental Status: Awake (Alert & Oriented to Patient Baseline) Airway and Respiratory Function: Patent airway with normal (patient baseline) respiratory exam Cardiovascular Function: Hemodynamically Stable Hydration Status: Adequately Hydrated Nausea & Vomiting: No Nausea or Vomiting Pain: Pt. Denies Any Pain Peripheral Nerve Block: Other (Local by Dr. Pollack)
[2022-04-21 12:52] VITALS: BP 118/76; PULSE 65; RESP 16; TEMP 36.6; O2SAT 93
== END 2022-04-21 12:56 | disposition home or self-care (01) ==
PROVIDERS: PCP Internal Medicine; Visit Provider Ophthalmology
PROC: (CPT 66984; principal; 2022-04-21 13:30)
DX: H25.11 Age-related nuclear cataract, right eye (principal); E78.5 Hyperlipidemia, unspecified; I10 Essential (primary) hypertension; E11.9 Type 2 diabetes mellitus without complications
CPT/HCPCS: 66984; V2632